=== PATIENT | female | born 2000 | race Caucasian/White ===

== ENCOUNTER 2018-12-15 16:23 | Emergency (ER) | payer OTHER ==
[2018-12-15 16:33] VITALS: PULSE 85; BMI 23.1
[2018-12-15] MEDS ORDERED: SODIUM CHLORIDE 0.9% 500 ML INFUS.BAG IV ONE (18:09)
[2018-12-15] MEDS ORDERED: ACETAMINOPHEN 325 MG TABLET (FP) PO ONE (18:14)
--- NOTE | 2018-12-15 18:38 | PDOC ---
History of Present Illness - General Chief Complaint: Lightheaded Stated Complaint: SYNCOPE Time Seen by Provider: 12/15/18 17:52 - History of Present Illness Initial Comments: 12/15/18 19:19 18yo F no MH presents c/o episode of dizziness earlier today. Pt was visiting her mother, a pt on the 6th floor, today. The doctor was telling her that her doctor needed to stay another day when she suddently felt nauseous, dizzy, and sweaty. Pt sat down and recovered in a few minutes. Now only has mild bitemporal pressure type headache and a little dizziness. Denies LOC, head injury, seizure-like activity including urinary incontinence or tongue biting, confusion, CP, palpitations, abdominal pain, back pain, dysuria, blood in stool , D/C, F/C, weakness, numbness/tingling, vision changes, sick contacts, recent travel, estrogen/OCP use, recent surgeries, hx PE/DVT. Denies , LMP 10/31. Eating and drinking normally today. Denies excessive exertion, stress, or anxiety. Denies hx of syncope or pre-syncope, but pt was here 06/09/12 when she was 11yo for presyncope. Past History - Past Medical History Allergies/Adverse Reactions: Allergies Allergy/AdvReac Type Severity Reaction Status Date / Time No Known Allergies Allergy Verified 12/15/18 16:29 Home Medications: Ambulatory Orders No Home Medications 0 dose .ROUTE UTDICT 06/10/12 COPD: No - Suicide/Smoking/Psychosocial Hx Smoking Status: No Smoking History: Never smoked Have you smoked in the past 12 months: No Number of Cigarettes Smoked Daily: 0 Hx Alcohol Use: No Drug/Substance Use Hx: No Review of Systems - Review of Systems Comments:: 12/15/18 19:34 Constitutional: Negative for chills, fever, fatigue. HENT: Negative for sore throat, rhinorrhea, congestion. Eyes: Negative for visual disturbance. Respiratory: Negative for shortness of breath, cough, and wheezing. Cardiovascular: Negative for chest pain, palpitations, and leg swelling. Gastrointestinal: Positive for nausea. Negative for abdominal pain, blood in stool, constipation, diarrhea, and vomiting. Genitourinary: Negative for dysuria, flank pain, and hematuria. Musculoskeletal: Negative for myalgias, back pain, and neck pain. Skin: Negative for rash. Neurological: Positive for dizziness and headache. Negative for syncope, weakness, numbness. Psychiatric/Behavioral: Negative for behavioral problems and confusion. *Physical Exam - Vital Signs Last Vital Signs Temp Pulse Resp BP Pulse Ox 99.3 F 85 16 124/77 97 12/15/18 16:26 12/15/18 16:26 12/15/18 16:26 12/15/18 16:26 12/15/18 16:26 - Physical Exam Comments: 12/15/18 19:35 Gen: Alert, NAD, comfortable-appearing. HEENT: PERRL, EOMI, MMM, NCAT. No conjunctival pallor. Sclera are non-icteric. Oropharynx is clear. CV: Regular rate and rhythm. No murmurs, rubs, or gallops. PULM: No resp distress. CTAB, no wheezes, rales, or rhonchi. ABD: soft, NT/ND, no rebound tenderness or guarding, no CVA tenderness. BACK: No TTP of c/t/l-spine. No step-offs or deformities. MSK: No bony deformities. 2+ pulses in all extremities. NEURO: AAOx3. PERRL. No gross CN deficits. 5/5 strength in all extremities. Sensation to light touch intact in all extremities. No pronator drift. No dysmetria. No dysdiadochokinesia. No abnormal nystagmus. No skew deviation. EXTREMITIES: No cyanosis. No clubbing. No edema. No calf tenderness. PSYCH: Normal mood and thought pattern. SKIN: Warm and dry. Normal capillary refill. No rashes. No jaundice. Heart Score/ECG Review - ECG Impressions Comment:: 12/15/18 19:05 NSR, 82bpm, no CHRISTAL/TWIs, QTc 446ms No evidence of Twnu-Udfxdaskb-Gcxqq (delta wave), Dndn-Hfuzcy-Dvdier (shortened [place] interval), Brugada syndrome, long or short QT interval, [facility] ED Treatment Course - LABORATORY CBC & Chemistry Diagram: 12/15/18 19:25 12/15/18 19:25 Medical Decision Making - Medical Decision Making 18yo F no MH presents with dizziness and headache s/p presyncopal episode this afternoon while visiting her mom in the hospital. Hemodynamically stable, afebrile. Bitemporal pressure type headache most consistent with tension headache or dehydration - give IVF and tylenol; presentation not concerning for emergent etiology such as SAH or meningitis. Presyncope most likely vasovagal or orthostatic due to presentation and lack of hx. Low concern for cardiac etiology due to lack of CP, palpitations, FHx, or syncope, and pre-trop HEART score 0, but assess and r/o ACS/SC or arrythmias (WPW, LGL, Brugada, long/short QT interval, HOCM) with EKG. Wells 0, PERC rules out PE - no further testing indicated for PE. Also consider infectious etiologies, anemia, , or metabolic derangements - r/o w/CMP, CBC, and serum . No seizure-like activity. -EKG -Labs: CBC, CMP, Serum -1L IVF -Tylenol for headache -Dispo: likely d/c home pending workup 12/15/18 20:15 EKG: No evidence of arrythmia, ischemia, Waba-Mrzbdixjd-Idagc (delta wave), Lown -Ganong-Varma (shortened [place] interval), Brugada syndrome, long or short QT interval, HOCM Labs reviewed. No concerning findings. IVF running. Just got Tylenol so still has MOHR. Reassess s/p IVF. 12/15/18 21:04 Pt feeling better now. Denies headache or dizziness. Ready to go home. Return precautions given. Pt understands all dc instructions and all questions were answered. Dc home. *DC/Admit/Observation/Transfer Diagnosis at time of Disposition: Pre-syncope - Discharge Dispostion Disposition: HOME Condition at time of disposition: Improved Decision to Admit order: No - Referrals Referrals: Jenn Carter MD [Primary Care Provider] - - Patient Instructions Printed Discharge Instructions: DI for Dizziness-Nonvertigo Additional Instructions: You have been seen in the Emergency Department for dizziness and headache. Your symptoms and dizzy episode earlier are most likely caused by dehydration or stress. Your EKG and labs show no signs concerning for an emergent condition such as an arrhythmia (abnormal heart rhythm), anemia, or electrolyte abnormality. At this point, it is most important to stay hydrated. Follow-up with your primary care doctor within 1 week. Return to the ED immediately if you experience chest pain, difficulty breathing , dizziness, fainting, or any other new or worsening symptom. - Post Discharge Activity
[2018-12-15 20:04] LABS: BASO % 0.2 % (0-2.0); EOS % 0.1 % (0-4.5); HEMATOCRIT 41.3 % (32.4-45.2); HEMOGLOBIN 13.9 GM/dL (10.7-15.3); LYMPH % 17.2 % (8-40); MCH 30.2 pg (25.7-33.7); MCHC 33.6 g/dl (32.0-36.0); MEAN CELL VOLUME 89.8 fl (80-96); MEAN PLT VOLUME 9.5 fl (7.5-11.1); MONO % 7.9 % (3.8-10.2); NEUT % 74.6 % (42.8-82.8); PLATELET COUNT 292 K/MM3 (134-434); RBC 4.59 M/mm3 (3.60-5.2); WHITE BLOOD COUNT 9.4 K/mm3 (4.0-10.0)
[2018-12-15] MEDS ORDERED: ACETAMINOPHEN 325 MG TABLET (FP) ONE (20:05)
[2018-12-15 20:13] LABS: ALBUMIN 3.8 g/dl (3.4-5.0); BILIRUBIN,TOTAL 0.4 mg/dL (0.2-1); BLOOD UREA NITROGEN 11.9 mg/dL (7-18); CALCIUM 8.9 mg/dL (8.5-10.1); CREATININE 0.9 mg/dL (0.55-1.3); POTASSIUM 4.4 mmol/L (3.5-5.1); TOT PROT 7.3 g/dl (6.4-8.2)
[2018-12-15 20:24] VITALS: BP 102/63; TEMP 98.3
--- NOTE | 2018-12-15 20:33 | PDOC ---
Documentation entered by Davy Romero SCRIBE, acting as scribe for Terri Gauthier MD. Terri Gauthier MD: This documentation has been prepared by the [email or web address] Joel, SCRIBE, under my direction and personally reviewed by me in its entirety. I confirm that the documentation accurately reflects all work, treatment, procedures, and medical decision making performed by me. Attending Attestation - Resident Resident Name: Anita Yao - ED Attending Attestation I have performed the following: I have examined & evaluated the patient, The case was reviewed & discussed with the resident, I agree w/resident's findings & plan, Exceptions are as noted - HPI HPI: 12/15/18 18:22 The patient is a 18 year old female with no significant PMH who presents to the emergency department for evaluation of dizziness prior to arrival. The patient states she was upstairs and heard her mom was going to be admitted, after which she developed onset of room spinning dizziness and lightheadedness with associated diaphoresis and nausea. She endorses a mild headache at presentation. She endorses a history of similar symptoms when she was younger, particularly around the time of menstruation. She denies history of anemia or migraines. The patient denies chest pain and shortness of breath. Denies fever, chills, vomit, diarrhea and constipation. Denies dysuria, frequency, urgency and hematuria. Allergies: NKA Past surgical history: None reported. Social history: No reported cigarette, alcohol, or drug use. PCP: Dr. Knutson - Physicial Exam PE: 12/15/18 18:23 GENERAL: Awake, alert, and fully oriented, in no acute distress HEAD: No signs of trauma ENT: Auricles normal inspection, hearing grossly normal, nares patent, oropharynx clear without exudates. Moist mucosa LUNGS: Breath sounds equal, clear to auscultation bilaterally. No wheezes, and no crackles HEART: Regular rate and rhythm, normal S1 and S2, no murmurs, rubs or gallops ABDOMEN: Soft, nontender, normoactive bowel sounds. No guarding, no rebound. No masses EXTREMITIES: Normal range of motion, no edema. No clubbing or cyanosis. No cords, erythema, or tenderness NEUROLOGICAL: Cranial nerves II through XII grossly intact. Normal speech, normal gait - Medical Decision Making 12/15/18 20:32 EKG is normal sinus rhythm without any signs of acute ischemia patient's labs are within normal She is not . She received IV fluids and symptoms resolved. Impressionvasovagal episode. Plan discharge home 12/15/18 20:32
--- NOTE | 2018-12-16 10:20 | EKG ---
Test Reason : Blood Pressure : / mmHG Vent. Rate : 082 BPM Atrial Rate : 082 BPM P-R Int : 160 ms QRS Dur : 086 ms QT Int : 382 ms P-R-T Axes : 054 057 025 degrees QTc Int : 446 ms NORMAL SINUS RHYTHM NONSPECIFIC T WAVE ABNORMALITY ABNORMAL ECG NO PREVIOUS ECGS AVAILABLE Confirmed by ANGELITO WRAY, LEXY ([id number]) on 12/16/2018 10:19:46 AM Referred By: Confirmed By:LEXY EATON MD
== END 2018-12-15 21:32 | disposition home or self-care (01) ==
LOC: JER 16:23
PROC: 3E0337Z Introduction of Electrolytic and Water Balance Substance into Peripheral Vein, Percutaneous Approach (ICD-10-PCS; principal; 2018-12-15)
DX: R55 Syncope and collapse (principal)
CPT/HCPCS: 36415; 80053; 84703; 85025; 93005; 93010; 99284-25